=== PATIENT | female | born 1975 | race Caucasian/White ===

== ENCOUNTER 2017-08-26 05:22 | Day surgery (SDC) | payer OTHER ==
[~2017-08-26] VITALS: Ht 170.2 cm; Wt 99.8 kg
[~2017-08-26 05:22] MED LIST: ALLEGRA ALLERG180 MG PO; ASCORBIC ACID500 M1 PO; ASPIRIN81 M2 PO; BIOTIN 5000MCG PO; DYMISTA NASAL S23 GM BOTH NARES; ECZEMA CREAM; FISH OIL 1,0001 EAC7 PO; IRON325 M1 PO; LEVALBUTER1.25 MG/0. IH; MOBIC15 MG PO; MONTELUKAST SOD10 MG PO; MULTIVITAMIN1 EAC2 PO; NAPROXEN500 MG PO; NEXIUM40 MG PO; NORCO 5/3251 TABLET PO; OMEGA-3 KRILL1 EACH PO; PREVIFEM1 EACH PO; PROAIR HFA8.5 GM IH; PROBIOTIC1 EAC3 PO; PULMICORT0.5 MG/21 IH; RANITIDINE HCL300 MG PO; SINGULAIR10 MG PO; SYMBICORT60 INHALA1 IH; SYMBICORT60 INHALAT IH; XOPENEX1.25 MG/3 IH; ZYRTEC10 M2 PO
[2017-08-26 05:56] VITALS: BP 122/81
[2017-08-26 09:35] VITALS: BP 169/90
[2017-08-26 10:08] VITALS: BP 143/85
== END 2017-08-26 10:15 | disposition home or self-care (01) ==
LOC: SDC 05:22
PROC: 09Q Ear, Nose, Sinus, Repair (ICD-10-PCS; principal; 2017-08-26)
DX: J34.89 Other specified disorders of nose and nasal sinuses (principal); M95.0 Acquired deformity of nose; J32.2 Chronic ethmoidal sinusitis; J32.0 Chronic maxillary sinusitis; K21.9 Gastro-esophageal reflux disease without esophagitis; G47.30 Sleep apnea, unspecified; J45.909 Unspecified asthma, uncomplicated; Z79.82 Long term (current) use of aspirin; Z88.2 Allergy status to sulfonamides; Z88.0 Allergy status to penicillin; Z88.1 Allergy status to other antibiotic agents
CPT/HCPCS: J0131; J0330; J1100; J1170; J2250; J2405; J3010